=== PATIENT | male | born 1945 | race Hispanic/Latino ===

== ENCOUNTER 2018-02-14 14:46 | Emergency (ER) | payer MEDICARE, OTHER ==
[~2018-02-14] VITALS: Ht 175.3 cm; Wt 127.9 kg
[~2018-02-14 14:46] MED LIST: GLIPIZIDE10 MG PO; LOPRESSOR50 MG PO; LOSARTAN POTASS25 MG PO; NEURONTIN300 MG PO; NIACOR500 MG PO; ZOCOR40 MG PO
--- OUTSIDE RECORDS SUMMARY | 2018-02-14 14:48 | XMS REPORT | Clinical Summary ---
Author [facility] Address Unknown Phone Unavailable Care Team Providers Care Sail Maker Name Role Phone Sharpless PCP Allergies Comments Active Allergy Reactions Severity Noted Date blisters Benzoin Other (See 10/13/2014 Comments) Medications End Date Status Medication Sig Dispensed Refills Start Date Active losartan (COZAAR) 25 MG Take 12.5 mg 0 tablet by mouth 2 (two) times daily. Active simvastatin (ZOCOR) 40 MG Take 40 mg by 0 tablet mouth nightly. Active metoprolol (LOPRESSOR) 50 Take 50 mg by 0 MG tablet mouth 2 (two) times daily. Active cyanocobalamin 500 MCG Take 500 mcg 0 tablet by mouth daily. Active glipiZIDE (GLUCOTROL XL) Take 5 mg by 0 10 MG 24 hr tablet mouth as needed . Active gabapentin (NEURONTIN) Take 600 mg 0 600 MG tablet by mouth 3 (three) times daily. Active cholecalciferol, vitamin Take 1,000 0 D3, (VITAMIN D3) 1,000 Units by unit capsule mouth daily. Active aspirin 81 MG EC tablet Take 81 mg by 0 mouth daily. Active ticagrelor (BRILINTA) 90 Take 1 tablet 60 tablet 2 mg Tab tablet (90 mg total) 7 by mouth 2 (two) times daily. Active ticagrelor (BRILINTA) 90 Take 1 tablet 60 tablet 11 mg Tab tablet (90 mg total) 7 by mouth 2 (two) times daily. 12/03/2017 losartan (COZAAR) 50 MG Take 1 tablet 90 tablet 0 tablet (50 mg total) 7 by mouth daily. 12/03/2017 metoprolol (LOPRESSOR) 25 Take 1 tablet 60 tablet 0 MG tablet (25 mg total) 7 by mouth 2 (two) times daily. Active Problems Problem Noted Date CAD (coronary artery disease) 12/02/2016 Cervical stenosis of spine 10/26/2014 Social History Date Tobacco Use Types Packs/Day Years Used Never Smoker Smokeless Tobacco: Never Used Alcohol Use Drinks/Week oz/Week Comments No Sex Assigned at Date Recorded Not on file Industry Job Start Date Occupation Not on file Not on file Not on file Travel End Travel History Travel Start No recent travel history available. Last Filed Vital Signs Not on file Plan of Treatment Not on file Implants Device Identifier Shelf Expiration Date Model / Serial / Lot Implanted Type Area Manufactur er 09/26/2017 [id number] / / [id number] Device Clsr Angio-Seal Vip 6fr Cardiovasc N/A: Coronary [facility] ELISE[facility] [id number] - [id number] ular MED:CARDIA Implanted: Qty: 1 on 12/02/2016 by Jeromy Walters MD 06/27/2016 [id number] / / [id number] Bone Graft Sub,Vitoss Foam Pack Cement/Connor N/A: Spine Mir Bioactive 5cc - [id number] ler/Adhesi Cervical Orthopaedi Implanted: Qty: 1 on 10/26/2014 by Evan Carlin MD 12/27/2014 [id number] / / [id number] Sealant,Floseal Hemostatic Matrix Cement/Connor N/A: Spine MUÑIZ 10ml - [id number] ler/Adhesi Cervical BIOSCIENCE Implanted: Qty: 1 on 10/26/2014 by Evan Lagunas MD [employer] [id number] / / NOT AVAILABLE Spacer,Avs As [id number] 4deg - Spine N/A: Spine MIR [id number] Cervical FELY Implanted: Qty: 1 on 10/26/2014 by Evan Carlson MD [id number] / / NOT AVAILABLE Spacer,Avs As [id number] 4deg - Spine N/A: Spine MIR [id number] Cervical FELY Implanted: Qty: 2 on 10/26/2014 by Evan Carlson MD [id number] / / NOT AVAILABLE Plate,Cervical Aviator 3-Level Sz Spine N/A: Spine MIR 51 - [id number] Cervical FELY Implanted: Qty: 1 on 10/26/2014 by Evan Carlson MD [id number] / / NOT AVAILABLE Screw,Variable Selfdrill Aviator Spine N/A: Spine MIR 4.0x16mm - [id number] Cervical FELY Implanted: Qty: 8 on 10/26/2014 by Evan Carlson MD [id number] 12/07/2017 [id number] / / [id number] Promuspremier Stents-Cor N/A: Coronary [place] Implanted: Qty: 1 on 12/02/2016 by [place] Jeromy Alcala MD Results Not on fileafter 02/13/2017 Insurance Payer Benefit Subscriber ID Type Phone Address Plan / Group MEDICARE MEDICARE A xxxxxxxxxx Medicare B CIGNA - COMMERCIAL CIGNA xxxxxxxxxxx Comm INDEMNITY Advance Directives For more information, please contact: [facility] [address] [place] [id number] Date Inactivated Comments Code Status Date Activated 12/03/2016 4:38 PM Full Code 12/02/2016 7:15 AM This code status was determined by: Patient 10/27/2014 4:12 PM Full Code 10/26/2014 3:35 PM This code status was determined by: Patient 10/26/2014 3:35 PM Full Code 10/26/2014 6:43 AM This code status was determined by: Patient
--- OUTSIDE RECORDS SUMMARY | 2018-02-14 14:48 | XMS REPORT ---
Author Author [facility] Address Unknown Phone Unavailable Care Team Providers Care Delivery Sales Worker Name Role Phone AAMIR BONIFACIO GREGORIO Unavailable Unavailable Problems This patient has no known problems. Allergies, Adverse Reactions, Alerts This patient has no known allergies or adverse reactions. Medications This patient has no known medications. Results Test Description Test Time Test Comments Text Results Atomic Results Result Comments POCT-GLUCOSE METER 2016-12-03 11:53:00 POC-GLUCOSE METER (BEAKER) (test mswb=2179) 204 mg/dL 70-110 TESTED AT [address] [address] POCT-GLUCOSE [id number] 08:26:00* Test Item Value Reference Range Comments POC-GLUCOSE METER (BEAKER) (test jwhz=2589) 196 mg/dL 70-110 TESTED AT [place] [id number] [facility] [address] BASIC METABOLIC [id number] 05:02:00* Test Item Value Reference Range Comments SODIUM (BEAKER) (test yctm=303) 141 meq/L 136-145 POTASSIUM (BEAKER) (test uhyw=506) 3.9 meq/L 3.5-5.1 CHLORIDE (BEAKER) (test vkoi=439) 109 meq/L 98-107 CO2 (BEAKER) (test vjhn=571) 24 meq/L 22-29 BLOOD UREA NITROGEN (BEAKER) (test awah=989) 14 mg/dL 7-21 CREATININE (BEAKER) (test wtxg=935) 0.86 mg/dL 0.57-1.25 GLUCOSE RANDOM (BEAKER) (test cfwn=156) 102 mg/dL 70-105 CALCIUM (BEAKER) (test tfum=779) 9.5 mg/dL 8.4-10.2 EGFR (BEAKER) (test xbyl=1372) 88 mL/min/1.73 sq m ESTIMATED GFR IS NOT ACCURATE CREATININE CLEARANCE IN PREDICTING GLOMERULAR FILTRATION RATE. ESTIMATED GFR IS NOT APPLICABLE FOR DIALYSIS PATIENTS. CBC (HEMOGRAM ONLY)2016-12-03 04:54:00* Test Item Value Reference Range Comments WHITE BLOOD CELL COUNT (BEAKER) (test thiw=371) 8.5 K/ L 3.5-10.5 RED BLOOD CELL COUNT (BEAKER) (test tphw=612) 3.84 M/ L 4.63-6.08 HEMOGLOBIN (BEAKER) (test afcg=500) 12.2 GM/DL 13.7-17.5 HEMATOCRIT (BEAKER) (test xvia=704) 36.7 % 40.1-51.0 MEAN CORPUSCULAR VOLUME (BEAKER) (test kmms=345) 95.6 fL 79.0-92.2 MEAN CORPUSCULAR HEMOGLOBIN (BEAKER) (test gumi=641) 31.8 pg 25.7-32.2 MEAN CORPUSCULAR HEMOGLOBIN CONC (BEAKER) (test whlo=061) 33.2 GM/DL 32.3-36.5 RED CELL DISTRIBUTION WIDTH (BEAKER) (test qayw=264) 14.1 % 11.6-14.4 PLATELET COUNT (BEAKER) (test rkfc=294) 137 K/CU MM 150-450 MEAN PLATELET VOLUME (BEAKER) (test wuyl=483) 11.4 fL 9.4-12.4 NUCLEATED RED BLOOD CELLS (BEAKER) (test bopu=445) 0 /100 WBC 0-0 POCT-GLUCOSE [id number] 17:10:00* Test Item Value Reference Range Comments POC-GLUCOSE METER (BEAKER) (test pnoh=1656) 215 mg/dL 70-110 TESTED AT [place] [id number] [place] [id number] POCT-GLUCOSE [id number] 11:36:00* Test Item Value Reference Range Comments POC-GLUCOSE METER (BEAKER) (test lzfo=5147) 132 mg/dL 70-110 TESTED AT [address] [address] [id number] 09:09:00* Test Item Value Reference Range Comments ACTIVATED CLOTTING TIME (BEAKER) (test uifr=285) 389 sec TESTED AT [address] [address] BASIC METABOLIC [id number] 08:00:00* Test Item Value Reference Range Comments SODIUM (BEAKER) (test eylo=978) 138 meq/L 136-145 POTASSIUM (BEAKER) (test xrre=273) 4.1 meq/L 3.5-5.1 CHLORIDE (BEAKER) (test hkfd=135) 108 meq/L 98-107 CO2 (BEAKER) (test nvst=416) 23 meq/L 22-29 BLOOD UREA NITROGEN (BEAKER) (test rpkp=441) 18 mg/dL 7-21 CREATININE (BEAKER) (test xtzt=377) 1.04 mg/dL 0.57-1.25 GLUCOSE RANDOM (BEAKER) (test iavx=320) 98 mg/dL 70-105 CALCIUM (BEAKER) (test epyo=663) 9.3 mg/dL 8.4-10.2 EGFR (BEAKER) (test tvqs=9624) 70 mL/min/1.73 sq m ESTIMATED GFR IS NOT ACCURATE CREATININE CLEARANCE IN PREDICTING GLOMERULAR FILTRATION RATE. ESTIMATED GFR IS NOT APPLICABLE FOR DIALYSIS PATIENTS. CBC W/PLT COUNT & AUTO [id number] 07:40:00* Test Item Value Reference Range Comments WHITE BLOOD CELL COUNT (BEAKER) (test cmem=283) 8.0 K/ L 3.5-10.5 RED BLOOD CELL COUNT (BEAKER) (test huqx=618) 3.90 M/ L 4.63-6.08 HEMOGLOBIN (BEAKER) (test lbvl=564) 12.4 GM/DL 13.7-17.5 HEMATOCRIT (BEAKER) (test ivyz=688) 37.0 % 40.1-51.0 MEAN CORPUSCULAR VOLUME (BEAKER) (test qkex=616) 94.9 fL 79.0-92.2 MEAN CORPUSCULAR HEMOGLOBIN (BEAKER) (test hirq=159) 31.8 pg 25.7-32.2 MEAN CORPUSCULAR HEMOGLOBIN CONC (BEAKER) (test ljpe=382) 33.5 GM/DL 32.3-36.5 RED CELL DISTRIBUTION WIDTH (BEAKER) (test ubde=588) 14.1 % 11.6-14.4 PLATELET COUNT (BEAKER) (test vzxy=105) 145 K/CU MM 150-450 MEAN PLATELET VOLUME (BEAKER) (test mvsb=282) 11.1 fL 9.4-12.4 NUCLEATED RED BLOOD CELLS (BEAKER) (test njqy=624) 0 /100 WBC 0-0 NEUTROPHILS RELATIVE PERCENT (BEAKER) (test gmah=980) 58 % LYMPHOCYTES RELATIVE PERCENT (BEAKER) (test pero=954) 23 % MONOCYTES RELATIVE PERCENT (BEAKER) (test syji=094) 11 % EOSINOPHILS RELATIVE PERCENT (BEAKER) (test umwi=597) 7 % BASOPHILS RELATIVE PERCENT (BEAKER) (test fpob=784) 1 % NEUTROPHILS ABSOLUTE COUNT (BEAKER) (test uvif=974) 4.66 K/ L 1.78-5.38 LYMPHOCYTES ABSOLUTE COUNT (BEAKER) (test xanx=237) 1.81 K/ L 1.32-3.57 MONOCYTES ABSOLUTE COUNT (BEAKER) (test gjre=115) 0.87 K/ L 0.30-0.82 EOSINOPHILS ABSOLUTE COUNT (BEAKER) (test ceyz=184) 0.57 K/ L 0.04-0.54 BASOPHILS ABSOLUTE COUNT (BEAKER) (test kdgy=103) 0.07 K/ L 0.01-0.08 IMMATURE GRANULOCYTES-RELATIVE PERCENT (BEAKER) (test ncut=8597) 0 % 0-1
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
--- NOTE | 2018-02-14 17:00 | Diagnostic Imaging Report ---
EXAMINATION: CHEST SINGLE (PORTABLE) COMPARISON: Chest x-ray 04/10/2012 INDICATION: Left side chest pain DISCUSSION: Frontal view of the chest obtained at 1631 hours. HEART AND MEDIASTINUM: Stable cardiomegaly. There is mild aortic ectasia LINES: None. LUNGS: Low lung volumes. Increasing left basilar airspace opacities. Right basilar airspace opacities are new. Pulmonary vascular structures normal. PLEURA: No pleural effusion or pneumothorax. BONES AND SOFT TISSUES: Multiple healed right posterior rib fractures. Anchors have been placed into the left humeral head. The soft tissues are normal. IMPRESSION: Low lung volumes with bibasilar airspace opacities, either atelectasis or pneumonia. Stable cardiomegaly. No vascular congestion. Signed by: Dr. Alena Lopez MD on 02/14/2018 4:57 PM
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
== END 2018-02-14 19:00 | disposition home or self-care (01) ==
LOC: ER 14:46
DX: S00.83XA Contusion of other part of head, initial encounter (principal); S20.212A Contusion of left front wall of thorax, initial encounter; S50.02XA Contusion of left elbow, initial encounter; S50.312A Abrasion of left elbow, initial encounter; W18.39XA Other fall on same level, initial encounter; Y93.01 Activity, walking, marching and hiking; Y92.511 Restaurant or cafe as the place of occurrence of the external cause; E11.9 Type 2 diabetes mellitus without complications
CPT/HCPCS: 70450; 71045; 99282